=== PATIENT | male | born 1945 | race Caucasian/White ===

== ENCOUNTER 2017-02-08 02:55 | Inpatient (IN) | payer OTHER ==
[~2017-02-08] VITALS: Ht 188 cm; Wt 145.1 kg
--- NOTE | ~2017-02-08 | PROC ---
[address] [address] PROCEDURE REPORT Name: VELMA FELIX Room: [address] IN ..#: [id number] Admission: 02/08/17 Attend Phys: Quan Valadez, Discharge: 02/12/17 Date of : 43 Report #: [id number] THIS REPORT FOR: //name// For details of GI procedure, please see copy of Provation report in Perceptive 7 content. By: 1043Medical Records Staff LINDA /JASON
[~2017-02-08 02:55] MED LIST: ALLOPURINOL 30300 M1 PO; ASPIRIN EC325 M1 PO; CALCIUM PO; CELEBREX 200 M200 M1 PO; CLARITIN10 M2 PO; CLARITIN10 MG PO; CLONAZEPAM 0.50.5 M1 PO; CLONAZEPAM 1 MG1 M1 PO; CLOTRIMAZOLE-BE15 GM TOP; COLACE100 MG PO; ENOXAPARIN40 MG/0.1 SUBQ; FISH OIL 1,0001 EAC5 PO; FISH OIL 1,001000 M1 PO; FOLTANX TABLET1 EACH PO; HYDROCODON-ACE1 EAC7 PO; HYDROCODONE; LOPRESSOR PO; LOPRESSOR25 PO; MAGNESIUM100 MG PO; MAGNESIUM250 M1 PO; MICARDIS 80 MG80 MG PO; MULTI-VITAMIN1 EAC5 PO; MULTIVITAMINS PO; NABUMETONE 750750 M1 PO; NEURONTIN 300300 M1 PO; NEXIUM 40 MG CA40 M1 PO; NEXIUM40 MG PO; NORCO 5-325 TA1 EACH PO; NORCO 7.5-3251 EACH PO; ODORLESS GARLI500 MG PO; OXYCODONE HCL 55 MG PO; OXYCODONE HCL10 M1 PO; OXYIR5 MG PO; POTASSIUM CHLO10 ME1 PO; POTASSIUM99 M1 PO; RELAFEN750 MG PO; SIMVASTATIN40 MG PO; STOOL SOFTENER1 EAC2 PO; SULINDAC 200MG200 M1 PO; TAMSULOSIN HCL0.4 M1 PO; VITAMIN B-12500 MCG PO; VITAMIN K PO; VITAMINC500 PO; VITCB500GO PO; XARELTO10 MG PO; ZOCOR40 MG PO; ZOFRAN ODT4 MG PO; [UNRECOGNIZED DRUG - OTHER] PO
[2017-02-08 03:10] VITALS: BP 203/89
[2017-02-08] MEDS ORDERED: POTASSIUM CITR15 MEQ PO (03:16)
[2017-02-08 03:54] LABS: URINE BILIRUBIN NEGATIVE (Negative); URINE BLOOD NEGATIVE (Negative); URINE CLARITY CLEAR; URINE COLOR YELLOW; URINE GLUCOSE-RANDOM NEGATIVE (Negative); URINE KETONES NEGATIVE (Negative); URINE LEUKOCYTES-REFLEX NEGATIVE (Negative); URINE NITRITE-REFLEX NEGATIVE (Negative); URINE PROTEIN 1+ (Negative)
[2017-02-08 04:17] LABS: ABSOLUTE BASOPHILS 0.1 thou/uL (0.0-0.2); ABSOLUTE EOSINOPHILS 0.1 thou/uL (0.0-0.7); ABSOLUTE LYMPHOCYTES 1.6 thou/uL (0.8-5.3); BASOPHILS 1.1 %; EOSINOPHILS 0.8 %; HEMATOCRIT 44.7 % (42.0-52.0); HEMOGLOBIN 15.3 gm/dL (14.0-18.0); LYMPHOCYTES 15.1 %; MCH 34.3 pg (26.0-34.0); MCHC 34.1 g/dL (28.0-37.0); MCV 100.6 fL (80.0-100.0); MONOCYTES 8.8 %; MPV 9.2 fl. (7.2-11.1); NUCLEATED RBCS 0 /100WBC; PLATELET COUNT* 181 thou/uL (150-400); POLYS 74.2 %; RBC 4.44 mil/uL (4.50-6.00); RDW-CV 13.4 % (10.5-14.5); WBC 10.8 thou/uL (4.0-11.0)
[2017-02-08 04:22] LABS: ANION GAP 8 mmol/L (7-16); BUN 20 mg/dL (7-18); CALCIUM 8.1 mg/dL (8.5-10.1); CHLORIDE 105 mmol/L (98-107); CO2 27 mmol/L (21-32); CREATININE 1.4 mg/dL (0.6-1.3); GLUCOSE 143 mg/dL (70-99); POTASSIUM 4.2 mmol/L (3.5-5.1); SODIUM 140 mmol/L (136-145)
[2017-02-08 04:34] LABS: ALBUMIN 3.3 g/dL (3.4-5.0); ALKALINE PHOSPHATASE 79 U/L (46-116); SGOT 20 U/L (15-37); SGPT 28 U/L (30-65); TOTAL BILIRUBIN 0.7 mg/dL (<0.1-1.0); TOTAL PROTEIN 6.4 g/dL (6.4-8.2); TROPONIN-I LEVEL <0.06 ng/mL (<0.06)
[2017-02-08 07:39] VITALS: BP 166/76
[2017-02-08 08:44] VITALS: BP 179/86
--- NOTE | 2017-02-08 13:54 | EKG ---
[place] [address] ELECTROCARDIOGRAM REPORT Name: VELMA FELIX Room: [address] ADM IN .R.#: [id number] Admission: 02/08/17 Attend Phys: Quan Valadez, Discharge: Date of : 43 Report #: [id number] THIS REPORT FOR: //name// [facility] ED Test Date: 2017-02-08 Test Time: 03:15:17 Pat Name: VELMA FELIX Department: Room: [facility] Gender: M Relations Mgr: SANTIAGO Juarez : 1945 Requested By: Katia Fleming Order Number: [id number] MD: Mihir Darden Measurements Intervals Stout Rate: 78 P: 36 AL: 208 QRS: -35 QRSD: 91 T: 20 QT: 370 QTc: 422 Interpretive Statements Sinus rhythm 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
[2017-02-08 15:50] VITALS: BP 121/85
--- NOTE | 2017-02-08 16:51 | NUR ---
PATIENT ADMITTED TO ROOM 314 THIS AM. A/O X 4, REPORTS MILD DISCOMFORT TO MIDLINE ABD, TOLERABLE. UP AD MARCIO, WALKS WITH STEADY GAIT. CAROL MEDS ORDERED. IV ACCESS TO LEFT WRIST INFILTRATED, NEW 20G PLACED TO LEFT FA, NS @ 150/HR. U.S. ABD COMPLETED TODAY, PRESSURE DECLINING. CONT POC.
[2017-02-08 20:40] VITALS: BP 161/75
[2017-02-09 03:34] LABS: HEMATOCRIT 43.1 % (42.0-52.0); HEMOGLOBIN 14.4 gm/dL (14.0-18.0); MCH 34.2 pg (26.0-34.0); MCHC 33.3 g/dL (28.0-37.0); MCV 102.7 fL (80.0-100.0); MPV 9.3 fl. (7.2-11.1); RBC 4.19 mil/uL (4.50-6.00); RDW-CV 13.9 % (10.5-14.5); WBC 8.5 thou/uL (4.0-11.0)
[2017-02-09 03:57] LABS: ALBUMIN 2.9 g/dL (3.4-5.0); CALCIUM 7.5 mg/dL (8.5-10.1); CREATININE 1.2 mg/dL (0.6-1.3); MAGNESIUM 1.8 mg/dL (1.8-2.4); POTASSIUM 4.1 mmol/L (3.5-5.1); TOTAL BILIRUBIN 0.9 mg/dL (<0.1-1.0); TOTAL PROTEIN 5.7 g/dL (6.4-8.2)
--- NOTE | 2017-02-09 06:06 | NUR ---
PATIENT SLEPT WELL THROUGHOUT THE NIGHT WITHOUT ANY ISSUES NOTED. PATIENT HAS REMAINED NPO. VSS ON RA. NO C/O PAIN. PATIENT IS UP AD-MARCIO AND STEADY. PATIENT VOIDING ADEQUATELY. IV IN LEFT AC-NS @ 150ML/HR. PATIENT INSTRUCTED TO USE CALL LIGHT WHEN NEEDING ASSISTANCE. HOURLY ROUNDS MADE. WILL CONTINUE WITH PLAN OF CARE AND NURSING TO MONITOR.
[2017-02-09 08:00] VITALS: BP 164/81
[2017-02-09 16:00] VITALS: BP 161/83
--- NOTE | 2017-02-09 18:39 | NUR ---
DAY 2 OF STAY, CAROL IVF AND ORAL MEDICATION WITHOUT INCIDENT. UP AD MARCIO, DENIES DISCOMFORT, CONTINENT OF BOWEL/BLADDER, CONT NPO. CONT POC.
[2017-02-09 20:00] VITALS: BP 176/87
--- NOTE | 2017-02-10 05:49 | NUR ---
PATIENT HAS RESTED IN ROOM THROUGHOUT THE NIGHT WITHOUT ANY COMPAINTS OF PAIN. REMAINS NPO D/T POSSIBLE GI SERIES TODAY. PATIENT HAS STATED THAT HE IS PASSING GAS. BOWEL SOUNDS ARE HYPOACTIVE. NO BM NOTED. PATIENT IS UP AD-MARCIO AND STEADY ON FEET. VSS ON RA, ALTHOUGH BP ELEVATED. IV IN LEFT AC-NS @ 150ML/HR. PATIENT IS URINATING ADEQUATELY WITH NO ISSUES. PATIENT HAS BEEN INSTRUCTED TO USE CALL LIGHT WHEN NEEDING ASSISTANCE. HOURLY ROUNDS MADE. WILL CONTINUE WITH PLAN OF CARE AND NURSING TO MONITOR.
[2017-02-10 07:37] LABS: ABSOLUTE BASOPHILS 0.1 thou/uL (0.0-0.2); ABSOLUTE EOSINOPHILS 0.2 thou/uL (0.0-0.7); ABSOLUTE LYMPHOCYTES 1.3 thou/uL (0.8-5.3); ABSOLUTE MONOCYTES 0.6 thou/uL (0.0-1.2); ABSOLUTE NEUTROPHILS 4.2 thou/uL (1.6-8.1); BASOPHILS 1.1 %; HEMATOCRIT 43.3 % (42.0-52.0); HEMOGLOBIN 14.9 gm/dL (14.0-18.0); LYMPHOCYTES 20.7 %; MCH 34.6 pg (26.0-34.0); MCHC 34.4 g/dL (28.0-37.0); MCV 100.5 fL (80.0-100.0); MONOCYTES 9.5 %; MPV 9.1 fl. (7.2-11.1); NUCLEATED RBCS 0 /100WBC; PLATELET COUNT* 160 thou/uL (150-400); POLYS 65.7 %; RBC 4.31 mil/uL (4.50-6.00); RDW-CV 13.3 % (10.5-14.5); WBC 6.4 thou/uL (4.0-11.0)
[2017-02-10 07:54] LABS: CALCIUM 7.7 mg/dL (8.5-10.1); CREATININE 1.1 mg/dL (0.6-1.3); POTASSIUM 4.2 mmol/L (3.5-5.1)
[2017-02-10 08:00] VITALS: BP 180/99
--- NOTE | 2017-02-10 12:30 | NUR ---
SW met with pt to complete initial assessment, introduce self, and SW role. Pt and brother in law present. Pt alert, oriented, pleasant. Pt anticipates to be able to dc home with who helps with any caregiving if needed. Pt has hx of HH services after knee replacements. Pt has a cane, walker and elevated toilet seats. SW to continue to follow to assist with safe dc planning.
[2017-02-10 16:00] VITALS: BP 169/61
--- NOTE | 2017-02-10 17:20 | NUR ---
ASSUMED PT CARE AT 0730, FULL ASSESEMNT DONE CHARTED. PT A/O X4, DENIES PAIN, STATES HE HAS NOT HAD A BM SINCE 02/07, AFTER PT HAD UPPER GI X RAY HE HAD MULTIPLE LOOSE BM'S. PT IS ABLE TO HAVE CLEAR LIQUID DIET UNTIL MIDNIGHT TONIGHT. PLAN FOR EGD TOMORROW. PTS BP HIGH THIS AM, PRN HYDRALAZINE AND SCHEDULED PO MEDS GIVEN. ALL OTHER VSS. PT AMBULATES AD MARCIO. FALL PRECATUIONS IN PLACE, PT USES CALL LIGHT APPROPARILY. WILL CONTINUE TO MONITOR.
--- NOTE | 2017-02-10 19:00 | NUR ---
ASSUMED CARE OF PATIENT AT 1730 FROM MARLENY HERNANDEZ. PATIENT ALERT AND ORIENTED. AGREE WITH PREVIOUS ASSESSMENT. PROCALAMINE INFUSING PER PUMP. UP AD MARCIO IN ROOM. TOLERATING CLEAR LIQUIDS. TO HAVE EGD ON THURSDAY. HOURLY ROUNDING COMPLETED. CALL LIGHT WITHIN REACH. WILL CONTINUE WITH PLAN OF CARE.
[2017-02-10 20:00] VITALS: BP 174/85
[2017-02-11 05:06] LABS: HEMATOCRIT 45.6 % (42.0-52.0); HEMOGLOBIN 15.5 gm/dL (14.0-18.0); MCH 34.2 pg (26.0-34.0); MCV 100.8 fL (80.0-100.0); MPV 9.3 fl. (7.2-11.1); RBC 4.52 mil/uL (4.50-6.00); RDW-CV 12.9 % (10.5-14.5); WBC 6.1 thou/uL (4.0-11.0)
[2017-02-11 05:34] LABS: ALBUMIN 2.7 g/dL (3.4-5.0); POTASSIUM 3.8 mmol/L (3.5-5.1); TOTAL BILIRUBIN 0.6 mg/dL (<0.1-1.0); TOTAL PROTEIN 6.1 g/dL (6.4-8.2)
--- NOTE | 2017-02-11 06:22 | NUR ---
PT SLEPT ON AND OFF THROUGH NIGHT. ASSESSMENT DOCUMENTED. MEDS GIVEN PER E-APR. PT REPORTED NO PAIN OR NAUSEA. PT DID REPORT HAVING DIARRHEA SINCE HIS GI PROCEDURE. NEW IV STARTED, FLUIDS INFUSING. NO CONCERNS AT THIS TIME, WILL CONTINUE TO MONITOR.
[2017-02-11 08:00] VITALS: BP 164/73
[2017-02-11 11:27] VITALS: BP 164/73
[2017-02-11 12:15] VITALS: BP 178/84
[2017-02-11 13:10] VITALS: BP 174/79
[2017-02-11 15:45] VITALS: BP 141/77
--- NOTE | 2017-02-11 16:50 | NUR ---
PATIENT HAD EGD DONE THIS AFTERNOON, BIOPSY NOTED IN REPORT. IV SL THIS SHIFT. TOLERATING REG DIET AFTER PROCEDURE. UP AD MARCIO. NO COMPLAINTS OF PAIN. PATIENT HOPING TO GO HOME SOON.
[2017-02-12] VITALS: BP 141/55
[2017-02-12 04:34] LABS: HEMATOCRIT 43.5 % (42.0-52.0); HEMOGLOBIN 14.9 gm/dL (14.0-18.0); MCH 33.9 pg (26.0-34.0); MCHC 34.2 g/dL (28.0-37.0); MCV 99.3 fL (80.0-100.0); MPV 9.3 fl. (7.2-11.1); RBC 4.38 mil/uL (4.50-6.00); RDW-CV 13.1 % (10.5-14.5); WBC 6.3 thou/uL (4.0-11.0)
[2017-02-12 04:40] LABS: CALCIUM 7.9 mg/dL (8.5-10.1); CREATININE 1.2 mg/dL (0.6-1.3); POTASSIUM 3.8 mmol/L (3.5-5.1)
--- NOTE | 2017-02-12 07:38 | NUR ---
PATIENT SLEPT MOST OF THE NIGHT. IV REMAINS SALINE LOCKED. PATIENT HAD NO COMPLAINTS OF PAIN OR NAUSEA. PATIENT IS POSSIBLY GOING HOME TODAY. WILL CONTINUE TO MONITOR.
[2017-02-12 08:50] VITALS: BP 151/91
[2017-02-12] MEDS ORDERED: CATAPRESS3 TRANSDERM (09:57)
[2017-02-12] MEDS ORDERED: MIRALAX17 GM PO (09:57)
[2017-02-12 10:29] VITALS: BP 151/91
--- NOTE | 2017-02-12 11:10 | NUR ---
PATIENT AND SPOUSE GIVEN DISCHARGE INSTRUCTIONS. PATIENT VERBALIZED UNDERSTANDING IN REGARDS TO FOLLOW UP APPOINTMENTS AND NEW MEDICATIONS. PATIENT'S IV REMOVED. PATIENT DISCHARGED HOME WITH ALL BELONGINGS. ESCORTED OFF NURSING UNIT VIA WHEELCHAIR WITH ALL BELONGINGS.
--- NOTE | 2017-02-13 10:52 | S ---
[place] [address] SURGICAL PATH RPT PROCEDURE Name: ERIK FELIX Room: [address] IN .R.#: [id number] Admission: 02/08/17 Date of : 43 Discharge: 02/12/17 Report #: [id number] Path Case #: [id number] PATHOLOGY REPORT COLLECTION DATE: 02/11/2017 RECEIVED DATE: 02/12/2017 SUBMITTING PHYS: Dr. Sunil Pope OTHER PHYS: Dr. Quan Flowers SPECIMEN(S) RECEIVED: A.Esophagus * * * * * * * * * * * * FINAL DIAGNOSIS: A. Esophagus: - Squamocolumnar junctional mucosa; chronically inflamed. - Negative for intestinal metaplasia. PATHOLOGIST: Joshua Wilks M.D. REPORT ELECTRONICALLY SIGNED BY: Joshua Wilks M.D. DATE/TIME: 02/13/2017 10:51 * * * * * * * * * * * * GROSS PATHOLOGY: Received in formalin labeled "Erik Felix, history of Adams's R/O dysplasia," and additionally confirmed with the provider as, "esophagus," are two segments of babin soft tissue measuring 0.5 x 0.5 x 0.2 cm in aggregate dimensions and ranging from 0.4 to 0.5 cm in maximum dimension. The specimen is submitted entirely in cassette A1. (DAC; 02/12/2017) CLINICAL HISTORY: History of Adams's, R/O dysplasia INITIAL CPT CODE(S): A; 91486 Professional services performed by [facility] at [facility] [address] [place] [address] Technical services performed by [facility] at [address] [place] [address], [facility] [address] [address]. [facility] [address] [place] [address] SURGICAL PATH RPT PROCEDURE Name: ERIK FELIX Room: [address] IN .R.#: [id number] Admission: 02/08/17 Date of : 43 Discharge: 02/12/17 Report #: [id number] Path Case #: [id number] [facility] [id number] [address] PHONE: [phone] DIRECTOR: Mihir Avila M.D. * * * END OF REPORT * * *
--- NOTE | 2017-02-17 16:26 | CON ---
[address] [address] CONSULTATION Name: VELMA FELIX Room: [address]R.#: [id number] Admission: 02/08/17 Attend Phys: Quan Valadez, Discharge: 02/12/17 Date of : 43 Report #: [id number] THIS REPORT FOR: //name// CC: Mihir Valadez DICTATED BY: Meeta No [facility] DATE OF SERVICE: 02/10/2017 Please note at the time of this dictation, the patient was seen and physically examined by myself. REASON FOR CONSULTATION: Possible pancreatitis. HISTORY OF PRESENT ILLNESS: This is a 71-year-old male who presented to the emergency room with chief complaint of having abdominal pain, which he has been noting for the past several days. He states that it seems to be worsening with movement. He states right now at the present time if he is sitting still, he has no pain. He states his last bowel movement was on Thursday, but after his upper GI test using the Gastrografin, he has gone to the bathroom numerous times since then. He did not have any nausea or vomiting at that time and his symptoms have improved. The patient did undergo an EGD with Dr. Pope back in July 2016 that showed esophagitis with repeat in 3 years with his history of Adams's esophagus and in 2013, he had a colonoscopy due to his history of colon polyps that just showed some diverticulosis and was essentially normal. ALLERGIES: NAPROXEN and MORPHINE. MEDICATIONS FROM HOME: Include potassium, aspirin, Micardis, Claritin, clonazepam, Lopressor, Zocor, , magnesium, allopurinol, garlic, omega-3, vitamin C, multivitamin, Relafen, potassium and vitamin B12. PAST MEDICAL HISTORY: History of kidney stones, GERD, Adams's esophagus, arthritis, neuropathy in his feet and history of hypertension. PAST SURGICAL HISTORY: Knee arthroscopic surgery times 2, he has had a total knee replacement. He had an appe in 2006 and tendon surgery of his hand. FAMILY HISTORY: Negative for any GI or female cancers. SOCIAL HISTORY: Alcohol use on special occasions. Denies any illegal drug use and quit smoking 25 years ago. REVIEW OF SYSTEMS: Twelve-point review of [place] [address] CONSULTATION Name: VELMA FELIX Room: [address]#: [id number] Admission: 02/08/17 Attend Phys: Quan Valadez, Discharge: 02/12/17 Date of : 43 Report #: [id number] except what is mentioned in the HPI. PHYSICAL EXAMINATION: VITAL SIGNS: Temperature 36.6, pulse 72, respirations 20, and blood pressure 180/85. HEART: Regular rate and rhythm. LUNGS: Clear. ABDOMEN: Soft. Positive bowel sounds in all 4 quadrants with some mild mid abdominal discomfort noted. LABS: Hemoglobin 14.9, hematocrit 43.3, white count is 6.4, platelets is 160, MCV is 100.5. Sodium 142, potassium 4.2, chloride 107, CO2 of 25, BUN is 14, creatinine is 1.1, GFR is 66, glucose is 95. Lipase is 126. CT of the abdomen and pelvis shows inflammatory changes involving the lower pancreatic head suggestive tiny air collections along the anterior wall of the duodenum. He had an ultrasound of the abdomen showed fatty liver and gallstones and bile duct was 6 mm. Upper GI using Gastrografin showed some mild reflux with no perforation was noted. IMPRESSION: 1. Abdominal pain. 2. History of nonsteroidal anti-inflammatory drug use, Relafen 500 mg 4 times a day. 3. Abnormal CT findings. 4. History of Adams's and colon polyps. PLAN: 1. EGD tomorrow with Dr. Pope. 2. Clear liquids and can advance to full liquids if tolerated. 3. Further recommendations to be made once the endoscopy study has been performed. Thank you for allowing us to participate in this patient's care. Please do not hesitate to call with any questions in regard to this consult. I personally seen and examined the patient and reviewed labs and imaging. I agree with the above assessment and we will go ahead and perform EGD tomorrow to further investigate his pain and symptoms of dyspepsia. We will make further recommendation once the upper endoscopy is complete. <ELECTRONICALLY SIGNED> By: Sunil Pope MD 02/17/17 1626 1442 [id number] Pope MD /nt
== END 2017-02-12 11:12 | disposition home or self-care (01) | DRG 682 ==
LOC: M.ERS 02:55 → M.TBA-ER 06:28 → M.3W 06:28
PROVIDERS: Internal Medicine; Personal Emergency Response Attendant; Surgery; ADMIT Family Medicine
PROC: 0DB58ZX Excision of Esophagus, Via Natural or Artificial Opening Endoscopic, Diagnostic (ICD-10-PCS; principal; 2017-02-11)
DX: N17.9 Acute kidney failure, unspecified (principal); K85.90 Acute pancreatitis without necrosis or infection, unspecified; Z68.41 Body mass index [BMI] 40.0-44.9, adult; K29.80 Duodenitis without bleeding; A08.4 Viral intestinal infection, unspecified; K22.70 Barrett's esophagus without dysplasia; E66.01 Morbid (severe) obesity due to excess calories; I12.9 Hypertensive chronic kidney disease with stage 1 through stage 4 chronic kidney disease, or unspecified chronic kidney disease; N18.2 Chronic kidney disease, stage 2 (mild); M19.90 Unspecified osteoarthritis, unspecified site; K21.9 Gastro-esophageal reflux disease without esophagitis; Z96.659 Presence of unspecified artificial knee joint; E11.22 Type 2 diabetes mellitus with diabetic chronic kidney disease; K80.20 Calculus of gallbladder without cholecystitis without obstruction; E11.40 Type 2 diabetes mellitus with diabetic neuropathy, unspecified; K22.8 Other specified diseases of esophagus; K44.9 Diaphragmatic hernia without obstruction or gangrene; Z90.49 Acquired absence of other specified parts of digestive tract; Z79.82 Long term (current) use of aspirin; Z79.899 Other long term (current) drug therapy; Z23 Encounter for immunization; Z87.442 Personal history of urinary calculi; Z88.6 Allergy status to analgesic agent; Z79.1 Long term (current) use of non-steroidal anti-inflammatories (NSAID); Z86.010 Personal history of colon polyps; Z83.49 Family history of other endocrine, nutritional and metabolic diseases

== ENCOUNTER → 2018-01-12 | Outpatient (CLI) | payer OTHER ==
[~2018-01-12] MED LIST changes: +CATAPRESS3 TRANSDERM; +MIRALAX17 GM PO; +POTASSIUM CITR15 MEQ PO
== END ==
LOC: M.MRI 07:41
DX: M47.27 Other spondylosis with radiculopathy, lumbosacral region (principal); M48.07 Spinal stenosis, lumbosacral region; M43.16 Spondylolisthesis, lumbar region; M51.16 Intervertebral disc disorders with radiculopathy, lumbar region

== ENCOUNTER → 2018-02-18 | Outpatient (CLI) | payer OTHER ==
--- NOTE | ~2018-02-18 | PAINCON ---
[address] [address] PAIN MANAGEMENT CONSULTATION Name: VELMA FELIX Room: [facility] Huber#: [id number] Admission: 02/18/18 Attend Phys: Mahesh Finney MD Discharge: Date of : 43 Report #: [id number] THIS REPORT FOR: //name// CC: Mihir Finney DATE OF SERVICE: 02/18/2018 CHIEF COMPLAINT: Sharp pain in the left hip and down in the back. HISTORY OF PRESENT ILLNESS: The patient is a 72-year-old gentleman who has been referred to the pain clinic because of pain and discomfort involving his low back and left hip. The patient states that the pain is worse with activities of daily living. Notes that when he lifts his left leg or bends forward he notes increasing pain. Pain improves with rest. He describes his discomfort as periodic, shooting and intermittent. Rates it as sharp. He scores it as a 6/10. Notes that the pain can be worse when he is leaning over washing dishes. Has some pain and discomfort in the left hip. He states that he went to see his surgeon. He was told that he is not having any problems with his left hip and that it might be his back. He has been using nabumetone to help with pain. Has problems with his knees and has had knee replacements. The patient at this juncture, he is having pain, which is most problematic in the lower portion of his back with pain that is radiating down into his left hip. The patient also has a history of cervical radiculopathy. ALLERGIES: MORPHINE IMMEDIATE RELEASE IT CAUSED WELT AND REDNESS IN 2012 AND NAPROSYN. MEDICATIONS: Fish oil 1000 mg 4 times daily, potassium 60 mEq, simvastatin 40 mg at bedtime, Flomax 0.4 mg, Micardis 80 mg, allopurinol 300 mg, vitamin C 500 mg, aspirin 325 mg, clonazepam 0.4 mg, vitamin B12 1000 mcg at bedtime, Nexium 40 mg, Odorless Garlic 1000 mg, Claritin 10 mg, magnesium 1000 mg, Lopressor 25 mg b.i.d., multivitamin, Relafen 750 mg b.i.d. PAST MEDICAL HISTORY: Hypertension, Adams's esophagitis, GERD, obstructive sleep apnea, history of abdominal pain, history of cholelithiasis, pancreatitis, kidney stones, back pain, neuropathy of the feet, arthritis, gout, hypercholesterolemia, benign prostatic hypertrophy. Lumbar radiculopathy, L4-L5 area, MRI with findings of severe hypertrophic posterior facet degenerative changes. There is severe bilateral neural foraminal narrowing. PAST SURGICAL HISTORY: Knee arthropathy x 2, UPPP for sleep apnea, excision of that toenail x 2, right total knee, appendectomy in 2006, kidney stones, [place] [address] PAIN MANAGEMENT CONSULTATION Name: VELMA FELIX Room: [facility]#: [id number] Admission: 02/18/18 Attend Phys: Mahesh Finney MD Discharge: Date of : 43 Report #: [id number] SOCIAL HISTORY: The patient is retired. REVIEW OF SYSTEMS: Generally good fatigue and weakness, hearing loss, ringing in the ears, bowel changes, abdominal pain, awakens at night to urinate dribbling incontinence, joint pain, joint stiffness, swelling, muscle cramps, back pain, change in hair and nails numbness and tingling sensation. LABORATORY DATA: MRI of the lumbar spine dated 01/12/2018: 1. At L2-L3, again has seen a generalized disk bulge with severe hypertrophic posterior facet degenerative change. The disk bulge is slightly more eccentric toward the right and results in a right greater than left bilateral recess narrowing. No significant central spinal stenosis seen. There is mild right-sided neural foraminal narrowing. 2. At L3-L4, there is generalized disk bulge with progressive disk space loss and as compared with the prior study. There is now complete disk space loss. Severe posterior facet degenerative changes are present. There is right lateral recess narrowing. No central spinal stenosis. The right greater than left mild bilateral neural foraminal narrowing. 3. L4-L5, there is generalized disk bulge with a right paracentral and right lateral disk protrusion that appears more severe compared with the prior study resulted in right lateral recess narrowing and posterior displacement of the descending right L5 nerve root. No central spinal stenosis. Severe hypertrophic posterior facet degenerative changes are present. There is severe bilateral neural foraminal narrowing. 4. L5-S1, there is severe hypertrophic posterior facet degenerative changes without central spinal stenosis. Again seen is moderate to severe right neural foraminal narrowing, which is increased slightly since the prior study. PAIN CLINIC ASSESSMENT/PQRS: 1. The patient has some arthritic changes involving his knees as well as low back area. The patient has not been treated for rheumatoid arthritis. 2. Height 6 feet 2 inches, weight 320 pounds, BMI is 41.6. 3. Vital signs: Blood pressure 166/86, heart rate 75, respiratory rate 16, room air saturation 93%. 4. Temperature 98.3. 5. Pain intensity score 2-3/10. 6. Fall history: The patient has not fallen in the last 3 months. 7. Hypertension. The patient is being treated for hypertension. 8. Risk assessment tool, low for opioid use. 9. Functional assessment tool. 10. Recreational drug use. The patient denies use of recreational drugs. 11. Tobacco: The patient does not smoke. 12. Alcohol: The patient denies frequent use of alcohol beverages. PHYSICAL EXAMINATION: GENERAL: The patient is a well-developed, well-[place] [address] PAIN MANAGEMENT CONSULTATION Name: VELMA FELIX Room: [facility]#: [id number] Admission: 02/18/18 Attend Phys: Mahesh Finney MD Discharge: Date of : 43 Report #: [id number] his stated age. He is alert and oriented x 3. Affect is appropriate. Speech is fluent. HEENT: Normocephalic, atraumatic. Extraocular eye muscles intact. Sclerae nonicteric. Mucous membranes are moist. NECK: Without adenopathy or JVD. Upper extremity muscle strength is judged to be 5/5 for the major muscle groups in the upper extremity. HEART: Regular rate. ABDOMEN: Protuberant. Bowel sounds present. The patient without significant kyphosis, lordosis and some scoliotic change in the lower portion of his back. He has muscle strains in the lower extremity, judged to be 5-/5. The patient is able to bend forward to about 70 degrees with some increased discomfort in the low back area on the left hip area. Left and right lateral rotation, left and right lateral bending, the patient states were not very problematic. Has pain in the left hip and pain in the area of the gluteus chinedu with pain that is radiating down in the L4-L5 dermatomal distribution. IMPRESSION: 1. Lumbar radiculopathy, L4-L5 area. MRI with findings of severe hypertrophic posterior facet degenerative changes. There is severe bilateral neural foraminal narrowing. RECOMMENDATIONS: We discussed treatment options with the patient. Risks and benefits of an epidural steroid injection were discussed. Possible complications of the procedure were reviewed. The patient elects to proceed with an injection. He will return to the Pain Clinic at which time he will then undergo an epidural steroid injection. Risks and benefits were again discussed and will be reviewed again with the patient when he returns. We would like to thank you for letting us participate in his care. We hope he continues to improve. By: [id number]. Facundo Finney MD /nt
== END ==
LOC: M.PC 09:50
DX: M54.16 Radiculopathy, lumbar region (principal); M47.896 Other spondylosis, lumbar region

== ENCOUNTER → 2018-02-25 | Outpatient (CLI) | payer OTHER ==
--- NOTE | ~2018-02-25 | PAINCON ---
[address] [address] PAIN MANAGEMENT CONSULTATION Name: VELMA FELIX Room: [facility].[place]ake.#: [id number] Admission: 02/25/18 Attend Phys: Mahesh Finney MD Discharge: Date of : 43 Report #: [id number] THIS REPORT FOR: //name// CC: Mihir Finney DATE OF SERVICE: 02/25/2018 CHIEF COMPLAINT: Here for an epidural steroid injection. FOLLOWUP HISTORY: The patient is a 72-year-old gentleman who has been seen in the pain clinic. As you may recall, he has pain and discomfort in his low back and left hip. He notes pain and discomfort with activities of daily living. Lifting and moving his left leg causes some increased pain. Notes that his pain improves somewhat when he is resting. He scores his pain as a 6/10. Notes that the pain can be exacerbated by leaning over and washing dishes. The patient has seen a surgeon. He was told that his pain is most likely a result of problems with his back. He has been using nabumetone. He is having pain that is radiating down into his hip on the left side. ALLERGIES: MORPHINE IMMEDIATE RELEASE CAUSE WELTS, REDNESS IN 2012. NAPROSYN. CURRENT MEDICATIONS: Fish oil 1000 mg 4 times daily, potassium 60 mEq, simvastatin 40 mg at bedtime, Flomax 0.4 mg, Micardis 80 mg, allopurinol 300 mg, vitamin C 500 mg, aspirin 325 mg, clonazepam 0.4 mg, vitamin B12 1000 mcg at bedtime, Nexium 40 mg, odorless garlic 1000 mg, Claritin 10 mg, magnesium 1000 mg, Lopressor 25 mg b.i.d., multivitamin, and Relafen 750 mg b.i.d. PAIN CLINIC ASSESSMENT/PQRS: 1. The patient has some arthritic changes involving his knees as well as his low back area. The patient is not being treated for rheumatoid arthritis. 2. Height 6 feet 2 inches, weight 320 pounds, BMI is 41.6. 3. Vital Signs: Blood pressure is 187/100, heart rate 60, respiratory rate 16, room air saturation 95%, temperature 98.0. 4. Saturation 95%. 5. Pain intensity 1-03/21. 6. Fall history: The patient has not fallen in the last 3 months. 7. Hypertension. The patient is being treated for hypertension. 8. Risk assessment tool, low for opioid use. 9. Functional assessment tool. 10. Recreational drug use. The patient denies use of recreational drugs. 11. Tobacco: The patient does not smoke. 12. Alcohol. The patient denies frequent use of alcoholic beverages. PHYSICAL EXAMINATION: [place] [address] PAIN MANAGEMENT CONSULTATION Name: VELMA FELIX Room: [facility]#: [id number] Admission: 02/25/18 Attend Phys: Mahesh Finney MD Discharge: Date of : 43 Report #: [id number] GENERAL: The patient is a well-developed, well-nourished white male. Appears his stated age. He is alert and oriented x 3. Affect is appropriate. Speech is fluent. HEENT: Normocephalic, atraumatic. Extraocular eye muscles intact. Sclerae nonicteric. Mucous membranes are moist. NECK: Without adenopathy or JVD. Upper extremity muscle strength is judged 5-/5 for the major muscle groups. HEART: Regular rate. ABDOMEN: Nontender, protuberant. Bowel sounds are present. MUSCULOSKELETAL: The patient without significant scoliosis, kyphosis or lordosis. The patient has some scoliotic change in the lower portion of his back. Muscle strength in the lower extremity, judged to be -5/5 for the motor for the major muscle groups. The patient has pain and discomfort radiating down into his left hip and pain and discomfort in the L4-L5 dermatomal distribution with sensory changes and muscle weakness. IMPRESSION: 1. Lumbar radiculopathy, L4-L5 dermatomal distribution with severe hypertrophic posterior facet degenerative changes at L4-L5. This causes severe bilateral neural foraminal narrowing. 2. Hypertension. 3. Adams's esophagitis. 4. Gastroesophageal reflux disease. 5. Obstructive sleep apnea. 6. History of abdominal pain. 7. History of pancreatitis. 8. History of cholelithiasis. 9. Kidney stones. 10. Neuropathy of the feet. 11. Arthritis. 12. Gout. 13. Hypercholesterolemia. 14. Benign prostatic hypertrophy. 15. Lumbar radiculopathy. RECOMMENDATIONS: We discussed treatment options with the patient. Risks and benefits of an epidural steroid injection were discussed. They include but are not limited to infection, worsening pain, no improvement in pain and the patient elects to proceed. PROCEDURE NOTE: The patient was taken to the procedure area. His back was sterilely prepped with a Betadine solution. Fluoroscopy using anterior, posterior as well as lateral viewing were implemented. The patient's back was infiltrated with 0.25% bupivacaine using a 25-gauge needle. A 17-gauge Tuohy with loss of resistance technique at the left L4-L5 interspace was pursued. After appropriate placement of the needle, 0.25% bupivacaine was infiltrated. [address] [place] [address] PAIN MANAGEMENT CONSULTATION Name: VELMA FELIX Room: [facility] M.R.#: [id number] Admission: 02/25/18 Attend Phys: Mahesh Finney MD Discharge: Date of : 43 Report #: [id number] total of 80 mg Depo-Medrol, 40 mg triamcinolone and 2 mL of 0.25% bupivacaine was injected. The patient tolerated the procedure well. There were no complications. He remained in the pain clinic for an appropriate amount of time. A total of 11 seconds fluoroscopy time was used. The patient will follow up in the future as needed. We would like to thank you for letting us participate in his care. We hope he continues to improve. By: [id number]. Facundo Finney MD /nt
== END | disposition home or self-care (01) ==
LOC: M.PC 04:43
DX: M54.16 Radiculopathy, lumbar region (principal); M46.96 Unspecified inflammatory spondylopathy, lumbar region; M48.061 Spinal stenosis, lumbar region without neurogenic claudication; I10 Essential (primary) hypertension; K21.9 Gastro-esophageal reflux disease without esophagitis; G47.33 Obstructive sleep apnea (adult) (pediatric); G62.9 Polyneuropathy, unspecified; M19.90 Unspecified osteoarthritis, unspecified site; M10.9 Gout, unspecified; E78.00 Pure hypercholesterolemia, unspecified; N40.0 Benign prostatic hyperplasia without lower urinary tract symptoms; Z79.899 Other long term (current) drug therapy; Z87.442 Personal history of urinary calculi; Z87.19 Personal history of other diseases of the digestive system; Z98.890 Other specified postprocedural states; Z88.8 Allergy status to other drugs, medicaments and biological substances; Z79.82 Long term (current) use of aspirin

== ENCOUNTER → 2018-03-25 | Outpatient (CLI) | payer OTHER ==
--- NOTE | 2018-03-30 09:15 | PAINCON ---
[address] [address] PAIN MANAGEMENT CONSULTATION Name: MARGARITAADRIANATHERESALITTLEVELMA KASPER Room: [facility] Julio.#: [id number] Admission: 03/25/18 Attend Phys: Mahesh Finney MD Discharge: Date of : 43 Report #: [id number] THIS REPORT FOR: //name// CC: Mihir Finney DATE OF SERVICE: 03/25/2018 CHIEF COMPLAINT: "Pain in the low back area with movement still there." FOLLOWUP HISTORY: The patient is a 72-year-old gentleman who has been followed in the pain clinic because of pain and discomfort in the low back area. He has had some pain in his hip as well. He underwent an epidural steroid injection. Finds that his pain continues to be quite problematic. Notes that the pain is most problematic when he is lifting, bending, twisting, and involves in the lower portion of his back, more in the low back area. He is able to put his finger in the area where the pain is most problematic. States that leaning, moving and twisting are problematic. He is having to give up helping his with the dishes in the kitchen because leaning over significantly exacerbates his discomfort. He has been using nabumetone. Feels that the pain is most problematic in the low back area. States that his brother had similar pain and problems. His brother underwent what sounds like obliteration of nerves using a radiofrequency technique in the low back area. ALLERGIES: MORPHINE IMMEDIATE RELEASE CAUSE SOME WELTS, REDNESS IN 2013 AND NAPROSYN. CURRENT MEDICATIONS: Fish oil 1000 mg 4 times daily, potassium 60 mEq, simvastatin 40 mg at bedtime, Flomax 0.4 mg, Micardis 80 mg, allopurinol 300 mg, vitamin C 500 mg, aspirin 325 mg, clonazepam 0.4 mg, vitamin B12 1000 mcg at bedtime, Nexium 40 mg, Odorless Garlic 1000 mg, Claritin 10 mg, magnesium 1000 mg, Lopressor 25 mg b.i.d., multivitamin, Relafen 750 mg b.i.d. PAIN CLINIC ASSESSMENT AND PQRS: 1. The patient has some arthritic changes in his low back area as well as in his knees. The patient is not being treated for rheumatoid arthritis. 2. Height 6 feet 2 inches, weight 312 pounds, BMI is 40. 3. Vital Signs: Blood pressure 160/78, heart rate 80, respiratory rate 16, room air saturation 94%, temperature 97.9. 4. Pain intensity 0/10 with sitting, 7-8/10 with movement and bending. 5. Fall history: The patient has not fallen in the last 3 months. 6. Blood thinner. The patient is not on a blood thinning medication. 7. Hypertension. The patient is being treated for hypertension. 8. Functional assessment tool. 9. Recreational drug use. The patient denies use of recreational drugs. 10. Tobacco: The [place] [address] PAIN MANAGEMENT CONSULTATION Name: JAYDALITTLEVELMA MAJO [facility] [id number] Admission: 03/25/18 Attend Phys: Mahesh Finney MD Discharge: Date of : 44 Report #: [id number] 11. Alcohol: The patient denies frequent use of alcoholic beverages. PHYSICAL EXAMINATION: GENERAL: The patient is a well-developed, well-nourished white male. Appears his stated age. He is alert, oriented x 3. His affect is appropriate. Speech is fluent. HEENT: Normocephalic, atraumatic. Extraocular eye muscles intact. Sclerae nonicteric. Mucous membranes are moist. NECK: Without adenopathy or JVD. Upper extremity muscle strength is judged to be 5-/5 for the major muscle groups. HEART: Regular rate. ABDOMEN: Nontender. Bowel sounds present. MUSCULOSKELETAL: Without significant scoliosis, kyphosis or lordosis. The patient has some increased pain and discomfort with rotation rightward. Less so with leftward rotation, forward bending cause some increased low back pain and discomfort in the low back area. The patient complains of some pain in his left hip as well as the right hip. Left lateral bending causes increased pain in the right side. Right lateral bending was not as problematic. IMPRESSION: 1. 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 2. Hypertension. 3. Adams's esophagitis. 4. Gastroesophageal reflux disease. 5. Obstructive sleep apnea. 6. History of abdominal pain. 7. History of pancreatitis. 8. History of cholelithiasis. 9. Kidney stones. 10. Neuropathy of the feet. 11. Arthritis. 12. Gout. 13. Hypercholesterolemia. 14. Benign prostatic hypertrophy. 15. History of lumbar radicular pain. RECOMMENDATIONS: We discussed treatment options with the patient. At this juncture, he feels his pain is more located in the back area. Movement in the low back area causes pain and discomfort, which is more problematic in the facet area. The patient sits leaning to the right side. Notes increased pain when he rolls over in bed. The patient is showing signs of facet disease. We have discussed the risk and benefits of facet joint injections. The patient at this juncture, we would like to proceed with his treatment option to see whether or not this would be more helpful with the pain that continues to plague him. We discussed the possible complication of the procedure, [place] [address] PAIN MANAGEMENT CONSULTATION Name: VELMA FELIX [facility].#: [id number] Admission: 03/25/18 Attend Phys: Mahesh Finney MD Discharge: Date of : 44 Report #: [id number] are not limited to infection, worsening of pain, no improvement in pain, bleeding, infection, nerve damage. The patient elects to proceed. PROCEDURE NOTE: The patient was taken to the procedure area. He was assisted in getting on the examination table. A pillow was placed under his abdomen to bolster and improve positioning. Fluoroscopy using anterior, posterior as well as lateral viewing were implemented to identify the left L4-L5 facet as well as the left L5-S1 facet and the right L4-L5 facet and right L5-S1 facet. After sterile preparation of the patient's back, a 25-gauge needle was used to identify the appropriate areas for the facets. A skin wheal was placed at each of the 4 facets. A 25-gauge needle on the right side was used to inject the local in all 4 areas. A 22-gauge Chiba needle was then directed into the right L4 facet. A 22-gauge Chiba was then advanced into the right L5-S1 facet. Aspiration was negative. A total of 20 mg of triamcinolone was injected in both areas. A 1 mL of 0.5% bupivacaine was injected into this area as well. The contralateral left side was treated in the like fashion. The L4-L5 facet was identified. The left L5-S1 facet was identified. A 22-gauge Chiba needle was injected into each of these 2 areas. Aspiration was negative. A total of 20 mg of triamcinolone was injected into both areas. A 2 mL of 0.5% bupivacaine was injected in the surrounding areas. The patient tolerated the procedure well. Total of 1 minute and 31 seconds' fluoroscopy time was used. The patient's pain was between 0-3. The patient felt that his pain it improves. He will follow up in the future. We would like to thank you for letting us participate in his care. We hope he continues to improve. <ELECTRONICALLY SIGNED> By: Mahesh Finney MD 03/30/18 0915 [id number] [id number]. Facundo Finney MD /[facility]
== END | disposition home or self-care (01) ==
LOC: M.PC 05:26
DX: M47.816 Spondylosis without myelopathy or radiculopathy, lumbar region (principal); M99.73 Connective tissue and disc stenosis of intervertebral foramina of lumbar region; I10 Essential (primary) hypertension; K22.70 Barrett's esophagus without dysplasia; K21.9 Gastro-esophageal reflux disease without esophagitis; G47.33 Obstructive sleep apnea (adult) (pediatric); G62.9 Polyneuropathy, unspecified; M19.90 Unspecified osteoarthritis, unspecified site; M10.9 Gout, unspecified; E78.00 Pure hypercholesterolemia, unspecified; N40.0 Benign prostatic hyperplasia without lower urinary tract symptoms; Z79.899 Other long term (current) drug therapy; Z88.8 Allergy status to other drugs, medicaments and biological substances; Z79.82 Long term (current) use of aspirin

== ENCOUNTER → 2018-04-22 | Outpatient (CLI) | payer OTHER ==
--- NOTE | 2018-04-27 09:30 | PAINCON ---
[address] [address] PAIN MANAGEMENT CONSULTATION Name: VELMA FELIX Room: [facility] M.Blake.#: [id number] Admission: 04/22/18 Attend Phys: Mahesh Finney MD Discharge: Date of : 44 Report #: [id number] THIS REPORT FOR: //name// CC: Mihir Finney DATE OF SERVICE: 04/22/2018 FOLLOWUP HISTORY: Pain was better after the facet joint injections, last time. HISTORY: The patient is a 72-year-old gentleman who has been seen in the pain clinic because of chronic pain. States that he has clean more benefit from the SI joint of the facet joints at the last injections at the last time. Continues to have pain, which is problematic with motion in the axial area of his back. Left and right lateral bending, left and right lateral motion in lumbar extension, twisting all impacting worse in the pain in his back. He states that he could discontinued activities such as doing dishes with his . Pain becomes quite problematic. States that his brother had similar pains. His brother underwent radiofrequency treatment of his low back area and has been doing well. The patient feels that he has similar problems and would like to consider radiofrequency lesioning. ALLERGIES: MORPHINE IMMEDIATE RELEASE CAUSE SOME WELTS, REDNESS IN 2012 AND NAPROSYN. MEDICATIONS: Fish oil 1000 mg 4 times daily, potassium 60 mEq, simvastatin 40 mg at bedtime, Flomax A 0.4 mg, Micardis 80 mg, allopurinol 300 mg, vitamin C 500 mg, aspirin 325 mg, clonazepam 0.4 mg, vitamin B12 1000 mcg at bedtime, Nexium 40 mg, Odorless garlic 1000 mg, Claritin 10 mg, magnesium 1000 mg, Lopressor 25 mg b.i.d., multivitamins, Relafen 750 mg b.i.d. PAIN CLINIC ASSESSMENT/PQRS: 1. The patient has some arthritic changes in the lower portion of his back. He noted improvement in his back after trigger after facet joint injections at the last visit. He has not been treated for rheumatoid arthritis. 2. Height 5 feet 4, height 6 feet 2 inches, weight 312 pounds, BMI is 40. 3. Vital signs: Blood pressure 176/94, heart rate 85, respiratory rate 16, room air saturation is 9397.8%, temperature 97.8. 4. Pain intensity 0 while sitting and 6 with standing, walking and moving activities and low back area. 5. Blood thinner. The patient is not on a blood thinning medication. 6. Hypertension. The patient is being treated for hypertension. 7. Functional assessment tool. 8. Low for use of opioid medications. 9. Recreational drug use. The patient denies use of recreational drugs. 10. Tobacco: The [place] [address] PAIN MANAGEMENT CONSULTATION Name: VELMA FELIX Room: [facility]#: [id number] Admission: 04/22/18 Attend Phys: Mahesh Finney MD Discharge: Date of : 44 Report #: [id number] 11. Alcohol: The patient denies frequent use of alcoholic beverages. PHYSICAL EXAMINATION: GENERAL: The patient sis a well-developed, well-nourished white male. Appears his stated age. He is alert and oriented x 3. Affect is appropriate. Speech is fluent. HEENT: Normocephalic, atraumatic. Extraocular eye muscles intact. Sclerae nonicteric. Mucous membranes are moist. The patient is wearing glasses. NECK: Without adenopathy or JVD. Upper extremity muscle strength is judged to be 5/5 for the piriformis muscle groups in the upper extremity. HEART: Regular rate. S1, S2. ABDOMEN: Nontender. Bowel sounds present. MUSCULOSKELETAL: Without significant scoliosis, kyphosis or lordosis. The patient has some increased pain in lower portion of his back with rotation, rightward as well as left rotator rate and left rotation. Extension and flexion cause some increased low back pain and discomfort. IMPRESSION: 1. This severe hypertrophic posterior facet degeneration at L4-L5 with bilateral neural foraminal narrowing. 2. Hypertension. 3. Adams's esophagitis. 4. Gastroesophageal reflux disease. 5. Obstructive sleep apnea. 6. History of abdominal pain. 7. History of pancreatitis. 8. History of cholelithiasis. 9. Kidney stones. 10. Neuropathy of feet. 11. Arthritis. 12. Gout. 14 Clot hypercholesterolemia. 13. Benign prostatic hypertrophy. 14. History of lumbar radicular pain. RECOMMENDATIONS: We discussed treatment options with the patient. The patient felt that he did gleans benefit from the injections in his back. At this visit with Lawrence, they both do the radiofrequency lesioning. I explained to the patient that I do not do the procedure. He will follow up at the pain clinic at [facility]. He will then be evaluated for treatment. Possibility of radiofrequency lesioning will be evaluated[place] [address] PAIN MANAGEMENT CONSULTATION Name: VELMA FELIX Room: [facility] Kim.#: [id number] Admission: 04/22/18 Attend Phys: Mahesh Finney MD Discharge: Date of : 44 Report #: [id number] thank you for letting us participate in his care. We hope he continues to improve. <ELECTRONICALLY SIGNED> By: Mahesh Finney MD 04/27/18 0930 1232 1725N. Facundo Finney MD /nt
== END ==
LOC: M.PC 04:51
DX: M51.36 Other intervertebral disc degeneration, lumbar region (principal); M48.061 Spinal stenosis, lumbar region without neurogenic claudication; M19.90 Unspecified osteoarthritis, unspecified site; M10.9 Gout, unspecified; E78.00 Pure hypercholesterolemia, unspecified; N40.0 Benign prostatic hyperplasia without lower urinary tract symptoms; I10 Essential (primary) hypertension; K22.70 Barrett's esophagus without dysplasia; G47.33 Obstructive sleep apnea (adult) (pediatric); Z88.5 Allergy status to narcotic agent; Z79.899 Other long term (current) drug therapy; Z79.891 Long term (current) use of opiate analgesic; Z90.49 Acquired absence of other specified parts of digestive tract

== ENCOUNTER 2018-07-05 00:55 | Inpatient (IN) | payer OTHER ==
[~2018-07-05] VITALS: Ht 188 cm; Wt 154.2 kg
[2018-07-05] VITALS (8 sets, daily range): BP systolic 134–222; BP diastolic 68–107
--- NOTE | ~2018-07-05 | CON ---
[facility] [address] [place] [address] CONSULTATION Name: VELMA FELIX Room: [address] M.R.#: [id number] Admission: 07/05/18 Attend Phys: Dell Saini MD Discharge: Date of : 44 Report #: [id number] THIS REPORT FOR: //name// CC: Mihir Saini DATE OF SERVICE: 07/05/2018 HISTORY OF PRESENT ILLNESS: This is a 72-year-old male patient who was evaluated by me for dizziness. He indicates that around 9:30 p.m. on Thursday he was driving home and had sudden onset of spontaneous dizziness. There were really no aggravating or relieving factors for this dizziness. It is a severe dizziness, which has not changed since the onset. He never had this kind of dizziness before. REVIEW OF SYSTEMS: Indicate he is hypertensive, he takes antihypertensive. However, when he came to Emergency Room, his blood pressure was pretty high. He does not check his blood pressure very often. He does have some lumbar spine pain and when he goes to pain management for radiofrequency treatment that is the time he checks those blood pressures. He said it was checked about 2-3 weeks ago and it was high, but does not know how high it was. He has a diagnosis of neuropathy. I am not sure how established the diagnosis of neuropathy is in this patient. His symptoms started in the left upper extremity and now involved both lower extremities. It is a longstanding problem and he has not had any evaluation by a neurologist for that. He has a history of BP, GERD, gout, some insomnia, obesity and hypertension. REVIEW OF SYSTEMS: A 14-point review of system was otherwise noncontributory. He still has dizziness, but he is not complaining of any marked ophthalmology symptom. He has no cardiac, respiratory, GI, , constitutional, dermatological, hematological, psychiatric, throat, allergic symptom associated with present symptomatology. PAST MEDICAL HISTORY: Negative for dizziness. FAMILY HISTORY: Negative for any similar problems. SOCIAL HISTORY: He drinks alcohol once a while, but does not smoke. PHYSICAL EXAMINATION: Indicates he is alert, responsive, able to follow simple and complex commands. His speech, concentration, fund of knowledge and memory is at his baseline. Cranial nerve examination 2-12 looks unremarkable except he has nystagmus. This nystagmus is not very pronounced, but is seen in multiple locations. His neuromuscular examination indicated decreased reflexes, but sensation, strength and tone were unremarkable. His pupil is small and I could not look at the fundus, but there is no meningeal sign or [place] [address] CONSULTATION Name: KAYETHERESAVELMA FITCH Room: [address] M.R.#: [id number] Admission: 07/05/18 Attend Phys: Dell Saiin MD Discharge: Date of : 44 Report #: [id number] has no edema, cyanosis or jaundice. Pulses in the left upper extremity where his symptoms are is palpable. An obese individual who does not have any dysmorphic features of eyes, ears and face, his vision and hearing looks adequate. He has no thyroid mass. Cardiac examination is unremarkable. No respiratory difficulty or rhonchi was noticed. His blood pressure is 184/91, when he came in it was even higher. His white count is normal at 7.3. His LDL is still high at 118. He did have a CT scan of the head, which appeared unremarkable. IMPRESSION AND RECOMMENDATIONS: This patient has a pronounced dizziness with nystagmus which is not very prominent, but is present in multiple locations. I think it is reasonable to exclude the possibility of stroke in the posterior fossa. If you find some, we should treat accordingly and if we do not find one, then he will need an ENT management. ENT management needed to be done as an outpatient as no ENT physician comes here. I discussed all of it with the patient in detail. We will get the MRI done, I will get it done today and because nystagmus appeared to be present and depending upon the results of MRI, we will decide about further management later on. Thank you very much for this referral. We will follow this patient along with you. By: 1347 1936Miguel Angel Black MD /armani
[2018-07-05 01:54] LABS: ABSOLUTE BASOPHILS 0.1 thou/uL (0.0-0.2); ABSOLUTE EOSINOPHILS 0.1 thou/uL (0.0-0.7); ABSOLUTE LYMPHOCYTES 1.3 thou/uL (0.8-5.3); ABSOLUTE MONOCYTES 0.5 thou/uL (0.0-1.2); ABSOLUTE NEUTROPHILS 5.3 thou/uL (1.6-8.1); BASOPHILS 1.1 %; EOSINOPHILS 0.7 %; HEMATOCRIT 48.1 % (42.0-52.0); HEMOGLOBIN 16.3 gm/dL (14.0-18.0); LYMPHOCYTES 17.7 %; MCH 34.6 pg (26.0-34.0); MCHC 33.9 g/dL (28.0-37.0); MCV 102.1 fL (80.0-100.0); MONOCYTES 6.9 %; MPV 8.8 fl. (7.2-11.1); NUCLEATED RBCS 0 /100WBC; PLATELET COUNT* 210 thou/uL (150-400); POLYS 73.6 %; RBC 4.71 mil/uL (4.50-6.00); RDW-CV 13.3 % (10.5-14.5); WBC 7.3 thou/uL (4.0-11.0)
[2018-07-05 02:04] LABS: ANION GAP 10 mmol/L (7-16); BUN 20 mg/dL (7-18); CALCIUM 9.1 mg/dL (8.5-10.1); CHLORIDE 109 mmol/L (98-107); CO2 26 mmol/L (21-32); CREATININE 1.3 mg/dL (0.6-1.3); GLUCOSE 159 mg/dL (70-99); POTASSIUM 4.1 mmol/L (3.5-5.1); SODIUM 145 mmol/L (136-145)
[2018-07-05 02:05] LABS: PROTIME 10.5 Seconds (9.20-11.50)
[2018-07-05 02:15] LABS: ALBUMIN 3.5 g/dL (3.4-5.0); ALKALINE PHOSPHATASE 73 U/L (46-116); NT-PRO BRAIN NAT PEPTIDE 67 pg/mL (<300); SGOT 18 U/L (15-37); SGPT 34 U/L (30-65); TOTAL BILIRUBIN 0.6 mg/dL (<0.1-1.0); TOTAL PROTEIN 6.6 g/dL (6.4-8.2); TROPONIN-I LEVEL <0.06 ng/mL (<0.06)
[2018-07-05 03:14] LABS: URINE BILIRUBIN NEGATIVE (Negative); URINE BLOOD NEGATIVE (Negative); URINE CLARITY CLEAR; URINE COLOR YELLOW; URINE GLUCOSE-RANDOM NEGATIVE (Negative); URINE KETONES NEGATIVE (Negative); URINE LEUKOCYTES-REFLEX NEGATIVE (Negative); URINE NITRITE-REFLEX NEGATIVE (Negative); URINE PROTEIN NEGATIVE (Negative); URINE UROBILINOGEN 0.2 E.U./dl (0.2-1.0)
[2018-07-05 08:02] LABS: CHOLESTEROL 184 mg/dL (<200); HDL CHOLESTEROL 39 mg/dL (>40); LDL CHOLESTEROL 118 mg/dL (<100); TC:HDL 4.7 Ratio (Not establshd); TRIGLYCERIDE 137 mg/dL (<150); TROPONIN-I LEVEL <0.06 ng/mL (<0.06); VLDL 27 mg/dL (<40)
[2018-07-05 08:03] LABS: SERUM ASSESSMENT Clear
[2018-07-06] VITALS: BP 150/70
[2018-07-06 02:05] LABS: GLYCOHEMOGLOBIN (HGB A1C) 6.2 % (4.8-5.6)
[2018-07-06 04:00] VITALS: BP 145/73
[2018-07-06 05:10] LABS: HEMATOCRIT 44.7 % (42.0-52.0); HEMOGLOBIN 15.5 gm/dL (14.0-18.0); MCH 35.3 pg (26.0-34.0); MCHC 34.7 g/dL (28.0-37.0); MCV 101.6 fL (80.0-100.0); MPV 9.1 fl. (7.2-11.1); RBC 4.4 mil/uL (4.50-6.00); RDW-CV 13.2 % (10.5-14.5); WBC 5.9 thou/uL (4.0-11.0)
[2018-07-06 05:32] LABS: CALCIUM 8.9 mg/dL (8.5-10.1); CREATININE 1.2 mg/dL (0.6-1.3); MAGNESIUM 1.9 mg/dL (1.8-2.4); POTASSIUM 3.7 mmol/L (3.5-5.1)
[2018-07-06 07:10] VITALS: BP 151/78
[2018-07-06 13:38] VITALS: BP 148/65
--- NOTE | 2018-07-06 14:24 | 2DMMODE ---
[place] [address] 2 D/M-MODE ECHOCARDIOGRAM Name: ISIDROVELMA MAJO Room: [facility]#: [id number] Admission: 07/05/18 Attend Phys: Dell Saini, Discharge: Date of : 43 Date of Service: 07/06/18 1424 Report #: [id number] THIS REPORT FOR: //name// APPROVED REPORT Study performed: 07/06/2018 12:04:52 EXAM: Comprehensive 2D, Doppler, and color-flow Echocardiogram Patient Location: In-Patient Room #: 200 Status: routine BSA: 2.64 HR: 66 bpm BP: 151/78 mmHg Rhythm: NSR Other Information Study Quality: Good Indications CVA/TIA Echo Enhancing Agent Indication: Rule out Shunt Agent(s) / Amount(s) Used: Agitated Saline 10 cc 2D Dimensions IVSd: 14.31 (7-11mm) LVOT Diam: 22.62 (18-24mm) LVDd: 50.94 mm PWd: 12.77 (7-11mm) Ascending Ao: 34.66 (22-36mm) LVDs: 30.64 (25-40mm) Aortic Root: 34.60 mm Volumes Left Atrial Volume (Systole) LA ESV Index: 27.00 mL/m2 Aortic Valve AoV Peak Deniz.: 1.20 m/s AO Peak Gr.: 5.79 mmHg LVOT Max P.43 mmHg AO Mean Gr.: 3.39 mmHg LVOT Mean P.75 mmHg LVOT Max V: 0.93 m/s AO V2 VTI: 28.19 cm LVOT Mean V: 0.61 m/s MATTHEW (VTI): 3.07 cm2 LVOT V1 VTI: 21.50 [place] [address] 2 D/M-MODE ECHOCARDIOGRAM Name: VELMA FELIX Room: [address] [place] .R.#: [id number] Admission: 07/05/18 Attend Phys: Dell Saini, Discharge: Date of : 43 Date of Service: 07/06/18 1424 Report #: [id number] Mitral Valve E/A Ratio: 0.78 MV Decel. Time: 317.01 ms MV E Max Deniz.: 0.61 m/s MV PHT: 91.93 ms MVA (PHT): 2.39 cm2 TDI E/Lateral E': 5.55 E/Medial E': 5.08 Medial E' Deniz.: 0.12 m/s Lateral E' Deniz.: 0.11 m/s Pulmonary Valve PV Peak Deniz.: 1.14 m/s PV Peak Gr.: 5.17 mmHg Tricuspid Valve RAP Estimate: 5.00 mmHg TR Peak Gr.: 25.60 mmHg RVSP: 30.00 mmHg PA Pressure: 30.00 mmHg Left Ventricle The left ventricle is normal size. There is normal LV segmental wall motion. Mild concentric left ventricular hypertrophy. Left ventricular systolic function is normal. The left ventricular ejection fraction is within the normal range. No left ventricle thrombus noted on this study. LVEF is 60-65%. Grade I - abnormal relaxation pattern. Right Ventricle The right ventricle is normal size. The right ventricular systolic function is normal. Atria The left atrium size is normal. Interatrial septum is intact without evidence of ASD or PFO.Negative bubble study. The right atrium size is normal. Aortic Valve The aortic valve is normal in structure. No aortic regurgitation is present. There is no aortic valvular stenosis. Mitral Valve The mitral valve is normal in structure. Mild mitral regurgitation. No evidence of mitral valve stenosis. [place] [address] 2 D/M-MODE ECHOCARDIOGRAM Name: KAYETHERESAVELMA FITCH Room: [address] ..#: [id number] Admission: 07/05/18 Attend Phys: Dell Saini, Discharge: Date of : 43 Date of Service: 07/06/18 1424 Report #: [id number] The tricuspid valve is normal in structure. Trace tricuspid regurgitation. Pulmonic Valve The pulmonary valve is normal in structure. Trace pulmonic regurgitation. Great Vessels The aortic root is normal in size. IVC is normal in size and collapses >50% with inspiration. Pericardium There is no pericardial effusion. <Conclusion> LVEF is 60-65%. There is normal LV segmental wall motion. There is no aortic valvular stenosis. No aortic regurgitation is present. Interatrial septum is intact without evidence of ASD or PFO.Negative bubble study. Grade I - abnormal relaxation pattern. Mild mitral regurgitation. <ELECTRONICALLY SIGNED> By: Nabor Silva MD, FACC 07/06/18 1424 1424 1424 Nabor Silva MD, FACC /INF
--- NOTE | 2018-07-06 14:27 | EKG ---
[place] [address] ELECTROCARDIOGRAM REPORT Name: ISIDROVELMA MAJO Room: [address] ADM IN .R.#: [id number] Admission: 07/05/18 Attend Phys: Dell Saini MD Discharge: Date of : 43 Report #: [id number] THIS REPORT FOR: //name// [facility] ED Test Date: 2018-07-05 Test Time: 01:49:53 Pat Name: VELMA FELIX Department: Room: [facility] Gender: M Advertising Copy Writer: VALERIE : 1945 Requested By: Dann Tapia Order Number: [id number] MD: Nabor Silva Measurements Intervals [place] Rate: 63 P: 43 AK: 204 QRS: -33 QRSD: 101 T: 14 QT: 405 QTc: 415 Interpretive Statements Sinus rhythm Inferior infarct, old Compared to ECG 02/08/2017 03:15:17 No significant changes Electronically Signed On 07-06-2018 14:27:29 CDT by Nabor Silva [email or web address] <ELECTRONICALLY SIGNED> By: Nabor Silva MD, [facility] 07/06/18 1427 0149 0149 Nabor Silva MD, [facility] /EPI
[2018-07-06 20:00] VITALS: BP 152/77
[2018-07-07] VITALS (7 sets, daily range): BP systolic 133–179; BP diastolic 63–90
[2018-07-07] MEDS ORDERED: HYDROCHLOROTHIA25 M1 PO (09:25)
[2018-07-07] MEDS ORDERED: GLUCOPHAGE500 MG PO (09:25)
[2018-07-07] MEDS ORDERED: ATORVASTATIN CA40 MG PO (09:25)
[2018-07-08] VITALS: BP 105/58
[2018-07-08 04:00] VITALS: BP 145/68
[2018-07-08 08:00] VITALS: BP 147/81
[2018-07-08 11:47] VITALS: BP 146/88
[2018-07-08 12:15] VITALS: BP 179/87
== END 2018-07-08 12:44 | DRG 149 ==
LOC: M.ERS 00:55 → M.TBA-ER 04:15 → M.2W 04:15
PROVIDERS: Emergency Medicine Emergency Medical Services; ADMIT Internal Medicine
DX: H81.90 Unspecified disorder of vestibular function, unspecified ear (principal); Z68.41 Body mass index [BMI] 40.0-44.9, adult; I10 Essential (primary) hypertension; N40.0 Benign prostatic hyperplasia without lower urinary tract symptoms; M10.9 Gout, unspecified; G47.00 Insomnia, unspecified; E66.01 Morbid (severe) obesity due to excess calories; K22.70 Barrett's esophagus without dysplasia; E78.5 Hyperlipidemia, unspecified; R73.03 Prediabetes; M48.02 Spinal stenosis, cervical region; I65.21 Occlusion and stenosis of right carotid artery; H55.00 Unspecified nystagmus; Z90.49 Acquired absence of other specified parts of digestive tract; Z79.899 Other long term (current) drug therapy; Z87.442 Personal history of urinary calculi; Z88.6 Allergy status to analgesic agent; Z88.8 Allergy status to other drugs, medicaments and biological substances

== ENCOUNTER → 2019-08-24 | Outpatient (CLI) | payer OTHER ==
[~2019-08-24] MED LIST changes: +ATORVASTATIN CA40 MG PO; +GLUCOPHAGE500 MG PO; +HYDROCHLOROTHIA25 M1 PO
== END ==
LOC: M.LAB 09:15
PROVIDERS: ATTEND Anesthesiology
DX: Z01.812 Encounter for preprocedural laboratory examination (principal); Z11.59 Encounter for screening for other viral diseases; K22.70 Barrett's esophagus without dysplasia; Z86.010 Personal history of colon polyps; E87.6 Hypokalemia

== ENCOUNTER → 2020-01-10 | Outpatient (CLI) | payer OTHER | LOC: M.ULTRA 14:10 | PROVIDERS: ATTEND Internal Medicine | DX: R60.0 Localized edema (principal) ==

== ENCOUNTER → 2020-04-18 | Outpatient (CLI) | payer OTHER | LOC: M.RAD 08:42 | PROVIDERS: ATTEND Internal Medicine | DX: R92.2 Inconclusive mammogram (principal) ==

== ENCOUNTER → 2020-06-26 | Outpatient (CLI) | payer OTHER | LOC: M.ULTRA 14:38 | PROVIDERS: ATTEND Internal Medicine | DX: R22.41 Localized swelling, mass and lump, right lower limb (principal) ==

== ENCOUNTER 2020-11-12 16:00 | Emergency (ER) | payer OTHER ==
[~2020-11-12] VITALS: Ht 188 cm; Wt 82.6 kg
[2020-11-12] MEDS ORDERED: PROSCAR 5MG TABL5 MG PO (16:34)
[2020-11-12] MEDS ORDERED: NORVASC 2.5 MG2.5 M1 PO (16:34)
[2020-11-12 17:32] LABS: URINE BILIRUBIN NEGATIVE (Negative); URINE BLOOD 1+ (Negative); URINE CLARITY CLEAR; URINE COLOR YELLOW; URINE GLUCOSE-RANDOM NEGATIVE (Negative); URINE KETONES NEGATIVE (Negative); URINE LEUKOCYTES NEGATIVE (Negative); URINE NITRITE NEGATIVE (Negative); URINE PROTEIN TRACE (Negative); URINE UROBILINOGEN 0.2 E.U./dl (0.2-1.0)
[2020-11-12 17:33] LABS: ABSOLUTE BASOPHILS 0.1 thou/uL (0.0-0.2); ABSOLUTE EOSINOPHILS 0.1 thou/uL (0.0-0.7); ABSOLUTE LYMPHOCYTES 1.6 thou/uL (0.8-5.3); ABSOLUTE MONOCYTES 0.9 thou/uL (0.0-1.2); ABSOLUTE NEUTROPHILS 7.4 thou/uL (1.6-8.1); BASOPHILS 0.9 %; EOSINOPHILS 1.2 %; HEMATOCRIT 48.4 % (42.0-52.0); HEMOGLOBIN 16.7 gm/dL (14.0-18.0); LYMPHOCYTES 15.8 %; MCH 34.5 pg (26.0-34.0); MCHC 34.5 g/dL (28.0-37.0); MONOCYTES 8.4 %; MPV 8.6 fl. (7.2-11.1); NUCLEATED RBCS 0 /100WBC; PLATELET COUNT* 200 thou/uL (150-400); POLYS 73.7 %; RBC 4.84 mil/uL (4.50-6.00); RDW-CV 13.3 % (10.5-14.5); WBC 10.1 thou/uL (4.0-11.0)
[2020-11-12 17:52] LABS: CALCIUM 8.8 mg/dL (8.5-10.1); CREATININE 1.1 mg/dL (0.6-1.3); POTASSIUM 4.6 mmol/L (3.5-5.1)
[2020-11-12 17:58] LABS: HYALINE CASTS 0-3 Few /LPF (None Seen)
[2020-11-12 17:59] LABS: BACTERIA None Seen /HPF (None Seen); CRYSTALS None Seen /LPF (None Seen); MUCUS None Seen strn/LPF (None Seen); SQUAMOUS NONE SEEN /LPF (0-3); URINE RBC 3-10 Few /HPF (0-2); URINE WBC None Seen /HPF (0-5)
[2020-11-12 18:02] LABS: ALBUMIN 3.8 g/dL (3.4-5.0); TOTAL BILIRUBIN 0.6 mg/dL (<0.1-1.0)
[2020-11-12] MEDS ORDERED: TORADOL 10 MG T10 MG PO (21:08)
[2020-11-12 21:25] VITALS: BP 156/79
--- NOTE | 2020-11-13 12:18 | EKG ---
[place] [address] ELECTROCARDIOGRAM REPORT Name: KAYETHERESAVELMA FITCH Room: [facility]#: [id number] Admission: 11/12/20 Attend Phys: Discharge: 11/12/20 Date of : 43 Date of Service: 11/12/20 1704 Report #: [id number] THIS REPORT FOR: //name// [facility] ED Test Date: 2020-11-12 Test Time: 17:04:25 Pat Name: VELMA FELIX Department: Room: Gender: Jet Aircraft Servicer: RICHARD : 1945 Requested By: Arvind Melvin Order Number: [id number] MD: Say Sosa Measurements Intervals [place] Rate: 66 P: 59 ND: 226 QRS: -26 QRSD: 102 T: 8 QT: 403 QTc: 423 Interpretive Statements Sinus rhythm Prolonged ND interval possible inferior scar Borderline left axis deviation Compared to ECG 07/05/2018 01:49:53 First degree AV block now present Electronically Signed On 11-13-2020 12:17:46 CDT by Say Sosa [email or web address] <ELECTRONICALLY SIGNED> By: Say Sosa MD, FAC 11/13/20 1217 1704 1704 Say Sosa MD, [facility] /EPI
== END 2020-11-12 21:25 | disposition home or self-care (01) ==
LOC: M.ERS 16:00
PROVIDERS: Physician Assistant
DX: N20.1 Calculus of ureter (principal); I10 Essential (primary) hypertension; E66.9 Obesity, unspecified; K21.9 Gastro-esophageal reflux disease without esophagitis; Z87.442 Personal history of urinary calculi; Z90.49 Acquired absence of other specified parts of digestive tract; Z79.899 Other long term (current) drug therapy; Z79.82 Long term (current) use of aspirin; Z88.8 Allergy status to other drugs, medicaments and biological substances; Z88.5 Allergy status to narcotic agent